=== PATIENT | female | born 1955 | race Two or more races ===

== ENCOUNTER 2019-10-16 16:10 | Emergency (ER) | payer BC ==
[~2019-10-16] VITALS: Ht 157.5 cm; Wt 53.5 kg
[2019-10-16] MEDS ORDERED: PREMARIN0.45 MG (17:15)
[2019-10-16] MEDS ORDERED: DIAZEPAM10 MG PO (19:11)
== END 2019-10-16 19:20 | disposition home or self-care (01) ==
LOC: ER 16:10
DX: G89.11 Acute pain due to trauma (principal); G44.319 Acute post-traumatic headache, not intractable; M54.2 Cervicalgia